=== PATIENT | male | born 1960 | race Caucasian/White ===

== ENCOUNTER 2020-12-01 06:59 | Emergency (ER) | payer MEDICARE ==
[~2020-12-01] VITALS: Ht 177.8 cm; Wt 118.0 kg
[2020-12-01 07:09] VITALS: BP 151/93
[2020-12-01] MEDS ORDERED: LIDOcaine 1% W/epiNEPHrine 1:200,000 10ml vial IJ ONE (08:00)
[2020-12-01] MEDS ORDERED: DOXY100C43 PO (09:12)
== END 2020-12-01 09:35 | disposition home or self-care (01) ==
LOC: ER 07:00
DX: J86.9 Pyothorax without fistula (principal); E11.9 Type 2 diabetes mellitus without complications
CPT/HCPCS: 10060; 99284

== ENCOUNTER 2020-12-03 12:32 | Emergency (ER) | payer MEDICARE ==
[~2020-12-03] VITALS: Ht 177.8 cm; Wt 120.5 kg
[~2020-12-03 12:32] MED LIST: DOXY100C43 PO
[2020-12-03 12:38] VITALS: BP 154/80
[2020-12-03] MEDS ORDERED: CEPH-585 PO (13:27)
== END 2020-12-03 13:25 | disposition home or self-care (01) ==
LOC: ER 12:33
DX: L02.212 Cutaneous abscess of back [any part, except buttock and flank] (principal); Z48.00 Encounter for change or removal of nonsurgical wound dressing; E11.9 Type 2 diabetes mellitus without complications; Z79.2 Long term (current) use of antibiotics; Z79.899 Other long term (current) drug therapy
CPT/HCPCS: 99283

== ENCOUNTER → 2020-12-05 | Emergency (ER) | payer MEDICARE ==
[~2020-12-05] VITALS: Ht 177.8 cm; Wt 122.0 kg
[~2020-12-05] MED LIST changes: +CEPH-585 PO
[2020-12-05 14:34] VITALS: BP 131/79
== END | disposition home or self-care (01) ==
LOC: ER 13:32
DX: S21.202D Unspecified open wound of left back wall of thorax without penetration into thoracic cavity, subsequent encounter (principal); Z48.03 Encounter for change or removal of drains; E11.9 Type 2 diabetes mellitus without complications; Z79.2 Long term (current) use of antibiotics; Z79.899 Other long term (current) drug therapy; X58.XXXD Exposure to other specified factors, subsequent encounter
CPT/HCPCS: 99281; 99282